=== PATIENT | female | born 1940 | race Caucasian/White ===

== ENCOUNTER 2017-08-18 12:20 | Inpatient (IN) | payer MEDICARE, OTHER ==
[~2017-08-18] VITALS: Ht 165.1 cm; Wt 74.8 kg
[2017-08-18] MEDS ORDERED: LIPITOR20 MG PO (12:37)
[2017-08-18] MEDS ORDERED: THEOPHYLLINE A100 MG PO (12:38)
[2017-08-18] MEDS ORDERED: PRINIVIL10 MG PO (12:55)
[2017-08-18] MEDS ORDERED: THEOPHYLLINE A450 MG PO (12:55)
[2017-08-18] MEDS ORDERED: ASPIR 8181 MG PO (12:56)
[2017-08-18] MEDS ORDERED: PENICILLIN V P500 MG PO (16:16)
[2017-08-18] MEDS ORDERED: EPIN0.3P IM (16:17)
[2017-08-18] MEDS ORDERED: VENTOLIN HFA18 GM INH (16:17)
[2017-08-18] MEDS ORDERED: DAILY VITE1 EACH PO (16:18)
[2017-08-18] MEDS ORDERED: VITAMIN B-121000 MCG PO (16:18)
[2017-08-25] MEDS ORDERED: LEVOFLOXACIN750 MG PO (14:13)
[2017-08-25] MEDS ORDERED: NICORETTE4 M2 BUCCAL (14:14)
[2017-08-25] MEDS ORDERED: IPRAT-ALBUT 0.5-3 ML INH (14:16)
[2017-08-25] MEDS ORDERED: VENTOLIN HFA18 GM INH (14:16)
[2017-08-25] MEDS ORDERED: SYMBICORT 16010.2 GM INH (14:17)
== END 2017-08-26 10:45 | disposition home or self-care (01) | DRG 177 ==
LOC: ED 12:20 → MS 14:41
PROVIDERS: ADMIT Internal Medicine
DX: J15.6 Pneumonia due to other Gram-negative bacteria (principal); J96.01 Acute respiratory failure with hypoxia; J44.0 Chronic obstructive pulmonary disease with (acute) lower respiratory infection; J44.1 Chronic obstructive pulmonary disease with (acute) exacerbation; N17.9 Acute kidney failure, unspecified; Z99.81 Dependence on supplemental oxygen; I10 Essential (primary) hypertension; E78.5 Hyperlipidemia, unspecified; F17.210 Nicotine dependence, cigarettes, uncomplicated; Z79.82 Long term (current) use of aspirin
CPT/HCPCS: 36415; 71045; 71260; 80048; 80053; 80500; 81001; 83605; 83735; 83880; 85025; 87040; 87070; 87205; 87449; 87502; 87899; 94640; 94667; 94668; 94761; 97110; 97162; 99406; J0692; J1650; J1956; J2060; J2930; J7030; J7050; J7512; Q9967

== ENCOUNTER 2021-11-30 09:05 | Emergency (ER) | payer MEDICARE, OTHER ==
[~2021-11-30] VITALS: Ht 165.1 cm; Wt 74.8 kg
[~2021-11-30 09:05] MED LIST: ASPIR 8181 MG PO; DAILY VITE1 EACH PO; EPIN0.3P IM; IPRAT-ALBUT 0.5-3 ML INH; LEVOFLOXACIN750 MG PO; LIPITOR20 MG PO; NICORETTE4 M2 BUCCAL; PENICILLIN V P500 MG PO; PRINIVIL10 MG PO; SYMBICORT 16010.2 GM INH; THEOPHYLLINE A100 MG PO; THEOPHYLLINE A450 MG PO; VENTOLIN HFA18 GM INH; VITAMIN B-121000 MCG PO
[2021-11-30] MEDS ORDERED: CEPHALEXIN500 MG PO (13:06)
--- NOTE | 2021-12-01 18:17 | EKG ---
[facility] [address] [facility] [place], [place] [address] Signed Normal sinus rhythm Inferior infarct , age undetermined Abnormal ECG No previous ECGs available Confirmed by GARFIELD MCKENZIE MD ([id number]) on 12/01/2021 6:17:32 PM Electronically Signed By: GARFIELD MCKENZIE MD 12/01/[id number] PATIENT NAME: IGOR AVALOS Electrocardiogram DATE OF : 40 PHYSICIAN: GARFIELD MCKENZIE MD REPORT #: [id number] REPORT IS CONFIDENTIAL AND NOT TO BE RELEASED WITHOUT AUTHORIZATION
== END 2021-11-30 14:02 | disposition home or self-care (01) ==
LOC: ED 09:05
DX: N39.0 Urinary tract infection, site not specified (principal); E86.0 Dehydration; R07.2 Precordial pain; R05.3 Chronic cough; J44.9 Chronic obstructive pulmonary disease, unspecified; I10 Essential (primary) hypertension; E78.5 Hyperlipidemia, unspecified; Z87.891 Personal history of nicotine dependence; Z79.899 Other long term (current) drug therapy; Z79.52 Long term (current) use of systemic steroids; Z20.822 Contact with and (suspected) exposure to COVID-19; Z99.81 Dependence on supplemental oxygen
CPT/HCPCS: 36415; 71045; 80053; 81001; 83605; 84484; 85025; 87502; 93005; 93010; 94640; 94664; C9803; J0696; J2405; J7030; U0003